=== PATIENT | male | born 2000 | race Caucasian/White ===

== ENCOUNTER 2023-09-17 21:11 | Emergency (ER) | payer BC, SELFPAY ==
[2023-09-17] MEDS ORDERED: Ibuprofen 800 MG TAB ONE (21:46)
[2023-09-17 21:51] LABS: #Monocytes 0.3 thou/uL (0.11-0.59); #Neutrophils 7.2 thou/uL (1.40-6.50); %Basophils 0.3 % (0.0-1.0); %Eosinophils 0.1 % (0.0-10.0); %Lymphocytes 4.7 % (21.0-51.0); %Monocytes 3.7 % (0.0-10.0); %Neutrophils 90.9 % (42.0-75.0); Hematocrit 46.9 % (42.0-52.0); Hemoglobin 16.9 g/dL (14.0-18.0); Mean Corpuscular Hemoglobin 30.2 pg (27.0-31.0); Mean Corpuscular Volume 83.8 fl (78.0-98.0); Mean Platelet Volume 10.6 fL (7.4-10.4); Platelet Count 198 10x3/uL (130-400); RBC Distribution Width 11.9 % (11.5-14.5); White Blood Cell (WBC) Count 7.9 10x3/uL (4.8-10.8)
[2023-09-17 22:20] LABS: ALT (SGPT) 238 U/L (8-55); AST (SGOT) 81 U/L (5-34); Albumin 4.8 g/dL (3.5-5.0); Alkaline Phosphatase 65 U/L (40-110); Anion Gap 13 mmol/L (10-20); BUN (Urea Nitrogen) 11 mg/dL (8.9-20.6); Bilirubin, Total 1.1 mg/dL (0.2-1.2); Calc. Creatinine Clearance 0 mL/min (70-130); Calcium 9.7 mg/dL (7.8-10.44); Carbon Dioxide 26 mmol/L (22-29); Chloride 100 mmol/L (98-107); Estimated GFR 115; Globulin 2.8 g/dL (2.4-3.5); Glucose 113 mg/dL (70-105); Lipase 13 U/L (8-78); Potassium 3.7 mmol/L (3.5-5.1); Protein, Total 7.6 g/dL (6.0-8.3); Sodium 135 mmol/L (136-145)
[2023-09-17 22:23] LABS: Troponin I 0.011 ng/mL (< 0.028)
== END 2023-09-17 23:07 | disposition home or self-care (01) ==
LOC: ERS 21:11
DX: R00.0 Tachycardia, unspecified (principal); R50.9 Fever, unspecified; Z55.6 Problems related to health literacy; I10 Essential (primary) hypertension
CPT/HCPCS: 71045; 80053; 83690; 84484; 85025; 85379; 93005; 96360